=== PATIENT | female | born 1945 | race Asian ===

== ENCOUNTER 2022-01-24 07:49 | Day surgery (SDC) | payer MEDICARE, OTHER ==
[~2022-01-24] VITALS: Ht 152.4 cm; Wt 59.9 kg
[2022-01-24] MEDS ORDERED: fentaNYL citrate 0.05 MG/ML VIAL ONE ×2 (09:57→10:17)
[2022-01-24] MEDS ORDERED: LIDOCAINE 2% 100 MG/5 ML UJET TP ONE ×2 (09:57→10:17)
[2022-01-24] MEDS ORDERED: fentaNYL citrate 0.05 MG/ML VIAL IVP ONE (10:45)
== END 2022-01-24 11:16 | disposition home or self-care (01) ==
LOC: MOR 07:49 → MMU 07:50 → MOR 11:16
PROVIDERS: ATTEND Internal Medicine Gastroenterology
DX: R19.5 Other fecal abnormalities (principal); I10 Essential (primary) hypertension; Z79.82 Long term (current) use of aspirin; Z79.899 Other long term (current) drug therapy; Z20.822 Contact with and (suspected) exposure to COVID-19
CPT/HCPCS: 45378; 87426; J3010